=== PATIENT | male | born 1970 | race Caucasian/White ===

== ENCOUNTER 2019-06-06 08:31 | Day surgery (SDC) | payer MEDICARE, OTHER ==
[2019-06-06] MEDS ORDERED: Cyanocobalamin (Vitamin B12) 1,000 MCG/ML SDV IM ONE (09:30)
[2019-06-06] MEDS ORDERED: Lactated Ringers 1,000 ML IV SCH (09:30)
[2019-06-06] MEDS ORDERED: Glycopyrrolate 0.2 MG/ML 2 ML SDV IVPUSH ONE (09:30)
[2019-06-06] MEDS ORDERED: fentaNYL 100 MCG/2 ML SDV ONE (09:37)
[2019-06-06] MEDS ORDERED: Propofol 200 MG/20 ML SDV ONE (09:37)
[2019-06-06] MEDS ORDERED: Midazolam 1 MG/ML 2 ML SDV ONE (09:37)
[2019-06-06] MEDS ORDERED: MVI, Adult with Vitamin K 10 ML, Thiamine 200 MG, Chromium/Copper/Mang/Selen/Zn 1 ML in... IV ONE ×4 (10:30)
[2019-06-06] MEDS ORDERED: Hyoscyamine 0.125 MG Tab.SL SL ONE (12:00)
[2019-06-06] MEDS ORDERED: methylPREDNISolone Sodium Succinate 125 MG/2 ML SDV IVPUSH ONE (12:00)
--- NOTE | 2019-06-10 13:59 | OR ---
DATE OF PROCEDURE: 06/06/2019 SURGEON: Leighton Houston MD PREOPERATIVE DIAGNOSIS: Dysphagia, status post Marguerite-en-Y gastric bypass. POSTOPERATIVE DIAGNOSES: 1. Dysphagia, status post Marguerite-en-Y gastric bypass with no gross abnormalities in esophagus, stomach, or gastrojejunostomy. 2. Focal enteritis in small bowel Marguerite limb. OPERATIVE PROCEDURE: Upper gastrointestinal endoscopy with biopsies of enteritis in Marguerite limb ([id number]). ANESTHESIA: IV sedation. 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 He presents now with some dysphagia. This was brought from more distal esophagus or gastric pouch type area. The plan is to proceed with upper GI endoscopy with biopsies and/or dilation as indicated. Potential risks including bleeding and perforation were discussed, and the patient wishes to proceed. DETAILS OF PROCEDURE: The patient was taken to the operating room and placed in a left lateral decubitus position. IV sedation was administered, after which the upper GI endoscope was passed orally through the length of the esophagus, into the gastric pouch, and from there through the gastrojejunostomy roughly 20 cm into the Marguerite limb. The patient had an entirely normal esophagus, esophagogastric junction, gastric pouch, and gastrojejunostomy with there being no significant inflammation or narrowing in those areas. Of note, then, however, around 10-15 cm distal to gastrojejunostomy, there is a focal area of enteritis with the small bowel showing patchy reddened areas as well as some areas covered with some fibrinous exudate. This extended only about 5 cm of the small bowel beyond which once again normalized. At that point, biopsies were obtained from the area of the enteritis and a tissue was obtained. There did appear to be somewhat soft and friable compared to normal small bowel mucosa. Minimal bleeding from the biopsy sites was seen. The scope was then withdrawn and the above findings reconfirmed. At this point, it is unclear what the cause of the enteritis is. We will await the pathology report. In the meantime, we will empirically give him a course of steroids, giving him 125 mg of Solu-Medrol today IV and then Solu-Medrol Dosepak starting tomorrow. We will also begin some Protonix 40 mg orally daily. The above findings do not really explain the patient's symptoms of dysphagia and given this, we will also give a trial of Levsin 0.125 mg sublingual to be taken p.r.n. for dysphagia. He will be following up with Brynn Hannon at [facility] in [place] on 06/17. If the symptoms persist at that point, one might consider a Gastroenterology referral. Leighton Houston MD /[id number]
== END 2019-06-06 13:05 | disposition home or self-care (01) ==
LOC: JP.SDS 08:31
PROVIDERS: ATTEND Surgery
DX: R13.10 Dysphagia, unspecified (principal); K52.9 Noninfective gastroenteritis and colitis, unspecified; I10 Essential (primary) hypertension; G47.33 Obstructive sleep apnea (adult) (pediatric); K21.9 Gastro-esophageal reflux disease without esophagitis; Z98.84 Bariatric surgery status
CPT/HCPCS: 43239; A9270; J2250; J2704; J2930; J3010; J3411; J3420; J3490; J7120; 88305